=== PATIENT | male | born 1975 | race Caucasian/White ===

== ENCOUNTER 2022-06-23 13:58 | Inpatient (IN) | payer MEDICAID, SELFPAY ==
[2022-06-23] VITALS (32 sets, daily range): BP systolic 110–144; BP diastolic 66–90; PULSE 72–93; RESP 16–18; TEMP 36.6–37.3; O2SAT 93–97; BMI 31.0
--- NOTE | 2022-06-23 14:10 | ED.GENADULT ---
HPI - General Adult General Time Seen by Provider: 14:10 Date Seen: 06/23/22 Chief complaint: Lower Extremity Swelling Stated complaint: Right leg swelling Time Seen by Provider: 06/23/22 14:10 Source: patient and RN notes reviewed Mode of arrival: ambulatory Limitations: no limitations History of Present Illness HPI narrative: Jeyson is a very nice 47-year-old male previously healthy who comes to the emergency room with 1 week of increased swelling of his right calf now climbing into his right leg. Patient cannot recall any specific injury, extended car rides or plane trips or history of DVT. Notes that the swelling started in his calf and now it is very firm and painful when he walks. He notes that the discomfort seems to be climbing into his thigh mostly on the inner aspect. He denies shortness of breath. He does agree that his heart is racing but it had been previously any thinks that this is likely related to the stress of being in the ER. Patient cannot recall any trauma. 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 Patient has not had a history of DVT nor have immediate family members. Related Data Home Medications Medication Instructions Recorded Confirmed No Known Home Medications 06/23/22 06/23/22 Allergies Allergy/AdvReac Type Severity Reaction Status Date / Time No Known Drug Allergies Allergy Verified 06/23/22 16:26 Review of Systems Status of ROS: Reports: 10 or more systems reviewed and unremarkable except as noted in History and below Const: Denies: fever or chills ENMT: Denies: throat pain, neck pain or difficulty swallowing Cardio: Reports: edema and swelling of feet/ankles; Denies: chest pain, palpitations, lightheadedness or shortness of breath with exertion Resp: Denies: shortness of breath or cough GI: Denies: abdominal pain, nausea, vomiting or difficulty swallowing Musculo: Reports: extremity pain and extremity swelling; Denies: back pain or neck pain Integ/Breast: Denies: redness Neuro: Denies: headache, numbness in extremities or weakness in extremities PFSH PFSH Social History Smoking Status: Never smoker Do you use any of these nicotine containing products: None How often do you have a drink containing alcohol: monthly or less How many standard drinks containing alcohol do you have on a typical day: 1 or 2 How often do you have six or more drinks on one occasion: Never AUDIT-C Alcohol total score: 1 Non-prescribed substance use: denies use Exam Narrative: Exam Narrative: Alert and oriented. No acute distress. No respiratory distress. Heart with regular rate and rhythm. Lungs are clear bilaterally. Abdomen soft. Lower extremity show discoloration/ruddiness of the right lower extremity. Capillary refill on the leg is slightly delayed compared to left. Pedal pulses are intact bilaterally and are symmetrical. Feet are similar in temperature. Sensation is fully intact. Patient has tenderness of the right calf. And of the medial thigh. Motor is fully intact. Const: Vital Signs, click to edit/add: Vital Signs - 24 hr 06/23/22 14:05 06/23/22 14:29 06/23/22 14:30 Temperature 97.8 F Pulse Rate 77 81 Pulse Rate [Pulse Oximeter] 78 Respiratory Rate 18 Blood Pressure Blood Pressure [Ri ght Upper Arm] 144/82 H Pulse Oximetry 97 96 96 Oxygen Delivery Me thod Room Air Room Air 06/23/22 14:31 06/23/22 14:45 06/23/22 15:00 Temperature Pulse Rate 75 84 87 Pulse Rate [Pulse Oximeter] Respiratory Rate Blood Pressure 142/84 H Blood Pressure [Ri ght Upper Arm] Pulse Oximetry 95 94 95 Oxygen Delivery Me thod 06/23/22 15:02 06/23/22 15:17 06/23/22 15:36 Temperature Pulse Rate 86 76 Pulse Rate [Pulse Oximeter] Respiratory Rate Blood Pressure 139/89 110/67 Blood Pressure [Ri ght Upper Arm] Pulse Oximetry 95 95 94 Oxygen Delivery Me thod 06/23/22 15:18 06/23/22 15:30 06/23/22 15:45 Temperature Pulse Rate 74 78 77 Pulse Rate [Pulse Oximeter] Respiratory Rate Blood Pressure Blood Pressure [Ri ght Upper Arm] Pulse Oximetry 95 95 95 Oxygen Delivery Me thod 06/23/22 15:47 06/23/22 16:02 06/23/22 16:17 Temperature Pulse Rate 75 74 78 Pulse Rate [Pulse Oximeter] Respiratory Rate Blood Pressure 128/69 132/74 125/77 Blood Pressure [Ri ght Upper Arm] Pulse Oximetry 96 95 94 Oxygen Delivery Me thod Documenting provider has reviewed patient's vital signs: yes Course Course Hospital Course: Differential diagnosis includes but is not limited to infection/cellulitis, DVT, arterial insufficiency, compartment syndrome. No known injury to suspect compartment syndrome. Patient has no history of DVT nor does he present with any risk factors. He denies recent surgery, recent extended travel, tobacco use. Patient has equal and symmetrical pedal pulses and thus I do not think this is in the arterial issue. Will obtain CBC, basic panel, and INR. Doppler for right lower extremity is also ordered. Reevaluation(s) Reevaluation #1: Patient has continued to be hemodynamically stable with no hypoxia, tachycardia, chest pain or hypotension. Consultations Consultation #1: Initial consult with vascular surgeon Dr. Maciel from [facility]. At this time advises talking with Interventional Radiology for potential thrombectomy. Advises heparin over lysis as patient is hemodynamically stable even in the setting of a freely moving clot in the proximal superficial femoral. Consultation #2: Had the pleasure of speaking with Dr. Bundy, interventional radiologist from [facility]. At this time images were sent to [place] and he was able to view them. Suggest a CT venogram of the abdomen and pelvis to ensure that there are no further clots in the iliac veins or inferior vena cava. If there were he would suggest consult him potential transfer for thrombectomy. If not, suggest continuing on heparin with overnight hospitalization and then discharge on Eliquis or Xarelto. Vital Signs Vital signs: Initial Vital Signs Temperature 97.8 F 06/23/22 14:05 Temperature Source Temporal Artery Scan 06/23/22 14:05 Pulse Rate 78 06/23/22 14:05 Respiratory Rate 18 06/23/22 14:05 Blood Pressure 144/82 H 06/23/22 14:05 Blood Pressure Mean 102 06/23/22 14:05 Blood Pressure Position Sitting 06/23/22 14:05 Pulse Oximetry 97 06/23/22 14:05 Oxygen Delivery Method 06/23/22 14:05 Vital Signs Temperature 97.8 F 06/23/22 14:05 Pulse Rate 78 06/23/22 14:05 Respiratory Rate 18 06/23/22 14:05 Blood Pressure 144/82 H 06/23/22 14:05 Pulse Oximetry 97 06/23/22 14:05 Oxygen Delivery Method 06/23/22 14:05 Temperature 97.8 F 06/23/22 14:05 Pulse Rate 78 06/23/22 16:17 Respiratory Rate 18 06/23/22 14:05 Blood Pressure 125/77 06/23/22 16:17 Pulse Oximetry 94 06/23/22 16:17 Oxygen Delivery Method 06/23/22 14:29 Medical Decision Making MDM Narrative Medical decision making narrative: 1. Right lower extremity DVT-this is extensive and concerning because proximal area of clot was approximately 3 cm and mobile. arcade game technician did show this to me on the scan. Obviously concerning to me given potential large PE or even saddle embolism. As previously noted discussion with both vascular surgeon and Interventional Radiology with a direction and suggestions of IV heparin, observation and eventual discharge tomorrow on a novel anticoagulant secondary to appearance of clot as well as appearance of right lower extremity which showed mottling and delayed capillary refill. Patient given bolus of heparin 7800 units followed by hourly infusion of 1500 units. Of note, patient's leg color is much improved from initial mottling to normal color at this time. This DVT is unprovoked with no previous his recent history of surgeries, trauma, family history, periods of immobility. 2. PE-these are small and are not causing any significant right heart strain. No hypoxia is noted. 2. Disposition- admit to the floor under the care of hospitalist Dr. Marks. Medical Records Medical records reviewed: Yes I reviewed the patient's medical records Lab Data Lab results reviewed: Yes I reviewed the patient's lab results Labs: Lab Results 06/23/22 06/23/22 06/23/22 Range/Units 14:30 14:30 14:30 WBC 8.37 (4.50-11.00) K/uL RBC 4.94 (4.30-5.90) m/uL Hgb 13.6 (13.5-17.5) gm/dL Hct 39.7 (37.0-53.0) % MCV 80 (80-100) fL MCH 28 (26-34) pg MCHC 34 (32-36) gm/dL RDW Coeff of Fatou 12.0 (11.5-15.5) % Plt Count 217 (140-440) K/uL Neut % (Auto) 55.9 (42.0-72.0) % Lymph % (Auto) 28.0 (20-44) % Valley % (Auto) 11.4 H (0.0-11.0) % Eos % (Auto) 4.4 (0.0-7.0) % Baso % (Auto) 0.2 (0.0-3.0) % Neut # (Auto) 4.68 (1.7-7.0) K/uL Lymph # (Auto) 2.34 (0.90-2.90) K/uL Valley # (Auto) 1.00 H (0.00-0.90) K/UL Eos # (Auto) 0.37 (0.00-0.50) K/uL Baso # (Auto) 0.02 (0.00-0.30) K/uL INR 1.01 (0.91-1.10) Sodium 136 (135-149) mmol/L Potassium 4.0 (3.6-5.1) mmol/L Chloride 102 (96-114) mmol/L Carbon Dioxide 28 (20-32) mmol/L BUN 23 (5-24) mg/dL Creatinine 1.0 (0.5-1.5) mg/dL Estimated Creat Clear 92.26 Estimated GFR 92 ml/min Glucose 106 (60-115) mg/dL Calcium 8.6 (8.4-10.6) mg/dL Total Bilirubin 0.4 (0.1-1.5) mg/dL AST 23 (12-35) U/L ALT 22 (4-50) U/L Alkaline Phosphatase 58 (40-150) U/L Total Protein 7.6 (6.0-8.3) g/dL Albumin 4.1 (3.3-5.0) g/dL SARS-CoV-2 (PCR) (Negative) 06/23/22 Range/Units 15:35 WBC (4.50-11.00) K/uL RBC (4.30-5.90) m/uL Hgb (13.5-17.5) gm/dL Hct (37.0-53.0) % MCV (80-100) fL MCH (26-34) pg MCHC (32-36) gm/dL RDW Coeff of Fatou (11.5-15.5) % Plt Count (140-440) K/uL Neut % (Auto) (42.0-72.0) % Lymph % (Auto) (20-44) % Valley % (Auto) (0.0-11.0) % Eos % (Auto) (0.0-7.0) % Baso % (Auto) (0.0-3.0) % Neut # (Auto) (1.7-7.0) K/uL Lymph # (Auto) (0.90-2.90) K/uL Valley # (Auto) (0.00-0.90) K/UL Eos # (Auto) (0.00-0.50) K/uL Baso # (Auto) (0.00-0.30) K/uL INR (0.91-1.10) Sodium (135-149) mmol/L Potassium (3.6-5.1) mmol/L Chloride (96-114) mmol/L Carbon Dioxide (20-32) mmol/L BUN (5-24) mg/dL Creatinine (0.5-1.5) mg/dL Estimated Creat Clear Estimated GFR ml/min Glucose (60-115) mg/dL Calcium (8.4-10.6) mg/dL Total Bilirubin (0.1-1.5) mg/dL AST (12-35) U/L ALT (4-50) U/L Alkaline Phosphatase (40-150) U/L Total Protein (6.0-8.3) g/dL Albumin (3.3-5.0) g/dL SARS-CoV-2 (PCR) Negative SARS-CoV-2 (Negative) Imaging Data Venous US: Attestation: I have reviewed the pertinent imaging results. Radiologist's impression: Sonographic imaging of the right lower extremity demonstrates normal compressibility and color Doppler venous blood flow within the common femoral vein, Thrombus is seen from right proximal superficial femoral vein to the distal femoral vein. Thrombus in the popliteal, peroneal veins. Thrombus appears mobile per tech from proximal to distal right superficial femoral vein IMPRESSION: Right DVT from the proximal superficial vein to the calf veins. Thrombus appears mobile? per technologist within the superficial femoral vein. CT Chest/Ab/Pelvis: Attestation: I have reviewed the pertinent imaging results. Radiologist's impression: In the chest, there are small bilateral pulmonary emboli within the subsegmental lower lobe pulmonary arterial branches. The RV/LV ratio is less than 1. No pulmonary infarct or pleural effusion. No enlarged lymph nodes. No fracture. In the abdomen, there are a few scattered subcentimeter retroperitoneal lymph nodes. Liver, spleen, pancreas, adrenal glands, kidneys and gallbladder normal. In the pelvis, there is no soft tissue mass. Bladder normal. No adenopathy. No fracture. No bowel obstruction. No abscess or free air. Impression: Small bilateral pulmonary emboli. Normal CT abdomen and pelvis. ECG Data Attestation: I personally reviewed and interpreted this ECG as follows: Interpretation: EKG by my read shows sinus rhythm at a rate of 73. I do not note any right heart strain. No acute ST or T-wave changes. Critical Care Time Critical Care Time Critical Care Time: Yes Attestation: The patient required my highest level preparedness to intervene emergently and I personally spent this critical care time directly and personally managing the patient. This critical care time included: Obtaining a history; Examining the patient; Pulse oximetry; Ordering and reviewing of studies; Arranging urgent treatment with development of a management plan; Evaluation of patients response to treatment; Frequent reassessment discussions with other providers. This critical care time was performed to assess and manage the high probability of imminent life-threatening deterioration that could result in multiorgan failure. It was exclusive of separate billable procedures and treating other patients and teaching time. Total Critical Care Time in Minutes: 80 Discharge Plan Discharge Prescriptions: No Action No Known Home Medications
--- NOTE | 2022-06-23 14:16 | CRLHL7_ITS ---
For Patients: As a result of the Century Cures Act, medical imaging exams and procedure reports are released immediately into your electronic medical record. You may view this report before your referring provider. If you have questions, please contact your health care provider. CLINICAL HISTORY: Right calf pain TECHNIQUE: A compression venous ultrasound exam was performed of the right lower extremity using alanis-scale imaging, color Doppler and spectral Doppler analysis. FINDINGS: Sonographic imaging of the right lower extremity demonstrates normal compressibility and color Doppler venous blood flow within the common femoral vein, Thrombus is seen from right proximal superficial femoral vein to the distal femoral vein. Thrombus in the popliteal, peroneal veins. Thrombus appears mobile per tech from proximal to distal right superficial femoral vein IMPRESSION: Right DVT from the proximal superficial vein to the calf veins. Thrombus appears mobile per technologist within the superficial femoral vein. Results were related from the technologist to Dr. Dietrich at the time of examination. 06/23/2022 4 p.m. Dictated by Nancy Gomez MD @ 06/23/2022 4:00:35 PM (Electronically Signed)
[2022-06-23 14:34] LABS: Basophils Absolute Auto 0.02 K/uL (0.00-0.30); Basophils Percent Auto 0.2 % (0.0-3.0); Eosinophils Absolute Auto 0.37 K/uL (0.00-0.50); Eosinophils Percent Auto 4.4 % (0.0-7.0); Hematocrit 39.7 % (37.0-53.0); Hemoglobin* 13.6 gm/dL (13.5-17.5); Immature Granulocytes Abs Auto 0.01 K/uL (0.00-0.30); Immature Granulocytes Pct Auto 0.1 %; Lymphocytes Absolute Auto 2.34 K/uL (0.90-2.90); Mean Corpuscular HGB Conc 34 gm/dL (32-36); Mean Corpuscular Hemoglobin 28 pg (26-34); Mean Corpuscular Volume 80 fL (80-100); Monocytes Percent Auto 11.4 % (0.0-11.0); Neutrophils Absolute Auto 4.68 K/uL (1.7-7.0); Neutrophils Percent Auto 55.9 % (42.0-72.0); Platelet Count* 217 K/uL (140-440); Red Blood Count 4.94 m/uL (4.30-5.90); White Blood Count* 8.37 K/uL (4.50-11.00)
[2022-06-23 14:51] LABS: Albumin* 4.1 g/dL (3.3-5.0); Chloride* 102 mmol/L (96-114); Slide Review Reflex No
[2022-06-23 14:52] LABS: Sodium* 136 mmol/L (135-149)
[2022-06-23 14:54] LABS: Bilirubin Total* 0.4 mg/dL (0.1-1.5); Carbon Dioxide* 28 mmol/L (20-32); Est. Creatinine Clearance* 92.26; Estimated Glomerular Filt Rate 92 ml/min; Total Protein* 7.6 g/dL (6.0-8.3)
[2022-06-23 14:55] LABS: Alanine Aminotransferase* 22 U/L (4-50); Alkaline Phosphatase* 58 U/L (40-150); Aspartate Amino Transferase* 23 U/L (12-35); Blood Urea Nitrogen* 23 mg/dL (5-24); Calcium* 8.6 mg/dL (8.4-10.6); Glucose* 106 mg/dL (60-115)
[2022-06-23 15:01] LABS: INR 1.01 (0.91-1.10); Prothrombin Time 13.9 Seconds
--- NOTE | 2022-06-23 15:09 | ED.NURSE ---
at bedside per U/S tech request.
--- NOTE | 2022-06-23 15:14 | ED.NURSE ---
ANW Vascular surgeon paged.
--- NOTE | 2022-06-23 15:23 | ED.NURSE ---
Dr. Dietrich speaking to PRIYANKA CHESTER.
[2022-06-23] MEDS: HEPARIN 5,000 UNIT/0.5 ML INJ 7800 UNIT IVP (15:53)
[2022-06-23] MEDS: HEPARIN 25,000 UNIT/500 ML BAG 30 UNIT IV (15:54)
--- NOTE | 2022-06-23 15:58 | CRLHL7_ITS ---
For Patients: As a result of the Century Cures Act, medical imaging exams and procedure reports are released immediately into your electronic medical record. You may view this report before your referring provider. If you have questions, please contact your health care provider. Indication: EXTENSIVE RIGHT LOWER EXTREMITY CLOT Technique: CT Chest/Abd/Pelvis W/ 95CC [id number] PE PROTOCOL Please note that all CT scans at this facility use dose modulation, iterative reconstruction, and/or weight-based dosing when appropriate to reduce radiation dose to as low as reasonably achievable. Comparison: US 06/23/22 Findings: In the chest, there are small bilateral pulmonary emboli within the subsegmental lower lobe pulmonary arterial branches. The RV/LV ratio is less than 1. No pulmonary infarct or pleural effusion. No enlarged lymph nodes. No fracture. In the abdomen, there are a few scattered subcentimeter retroperitoneal lymph nodes. Liver, spleen, pancreas, adrenal glands, kidneys and gallbladder normal. In the pelvis, there is no soft tissue mass. Bladder normal. No adenopathy. No fracture. No bowel obstruction. No abscess or free air. Impression: Small bilateral pulmonary emboli. Normal CT abdomen and pelvis. Called to Dr. Long 5:20 p.m. 06/23/2022. Please note that all CT scans at this facility use dose modulation, iterative reconstruction, and/or weight-based dosing when appropriate to reduce radiation dose to as low as reasonably achievable. Dictated by Devyn Renee MD @ 06/23/2022 5:18:30 PM (Electronically Signed)
[2022-06-23 16:11] LABS: SARS PCR* Negative SARS-CoV-2 (Negative)
--- NOTE | 2022-06-23 16:45 | ED.NURSE ---
Pt continuously monitored while at imaging. Pt tolerated well.
--- NOTE | 2022-06-23 18:03 | ED.NURSE ---
Report given to JEZ Byrnes. Pt will go to Rm [id number].
--- NOTE | 2022-06-23 18:29 | ED.NURSE ---
Pt tolerated transfer to /S well via cot. Belongings and at bedside. Heparin gtt continues to infuse at 1500 units/hr. 2nd IV SL at this time.
--- NOTE | 2022-06-23 19:17 | PM.IMHP1 ---
Hospitalist- H&P: HPI History of Present Illness Date Seen: 06/23/22 Chief complaint: Right leg swelling Narrative: Jeyson Judd is a 47 year old male who presented to the emergency room today for right extremity edema. He has noted discomfort in the area intermittently over the past 5-7 days; swelling has been noted for the past 2-3 days. No recent travel, no recent illness. No history of blood clots in self or family members. Generally healthy, no PCP. No daily medications or supplements/vitamins. Has never had a colonoscopy. ER course and findings: - thrombus in right proximal superficial femoral vein to the distal femoral vein with thrombus in popliteal and peroneal veins; does not extend into IVC - small bilateral pulmonary emboli - Dr. Dietrich in the emergency room reviewed case with IR and vascular surgery, who recommend a heparin drip overnight and transitioning to oral anticoagulation in the morning - heparin initiated in the emergency room When I see patient, he has no concerns for hospitalist team. Review of Systems Status of ROS: Reports: 10 or more systems reviewed and unremarkable except as noted in History and below Narrative: Specifically denies chest pain or dyspnea PFSH PFS Surgical History (Updated 06/23/22 @ 19:18 by Miranda Marks MD) No history of previous surgery Social History (Updated 06/23/22 @ 19:19 by Miranda Marks MD) Narrative: Lives with Radha (medical decision maker if needed), 3 children. Works in [employer] in the winter. Nonsmoker, rare ETOH use. Full Code. Smoking Status: Never smoker Do you use any of these nicotine containing products: None How often do you have a drink containing alcohol: monthly or less How many standard drinks containing alcohol do you have on a typical day: 1 or 2 How often do you have six or more drinks on one occasion: Never AUDIT-C Alcohol total score: 1 Non-prescribed substance use: denies use Meds Home Medications and Allergies Home Medications Medication Instructions Recorded Confirmed Type No Known Home Medications 06/23/22 06/23/22 History Allergies Allergy/AdvReac Type Severity Reaction Status Date / Time No Known Drug Allergies Allergy Verified 06/23/22 16:26 Exam Narrative: Exam Narrative: GEN: Alert and oriented, sitting comfortably in bed and nontoxic in appearance HEENT: Normal external ears, EOMIs bilaterally, no scleral icterus CV: RRR, No concerning murmurs, rubs, or gallops R: LCTA bilaterally without concerning wheezing, rales, or rhonchi Ext: Nonpitting edema of right lower extremity, normal and symmetric peripheral pulses, normal sensation and capillary refill Skin: No concerning skin lesions or rashes on exposed skin Neuro: No focal deficits Psych: Appropriate Const: Vital Signs, click to edit/add: Vital Signs - 24 hr 06/23/22 14:05 06/23/22 14:29 06/23/22 14:30 Temperature 97.8 F Pulse Rate 77 81 Pulse Rate [Pulse Oximeter] 78 Pulse Rate [Right Radial] Respiratory Rate 18 Blood Pressure Blood Pressure [Ri ght Arm] Blood Pressure [Ri ght Upper Arm] 144/82 H Pulse Oximetry 97 96 96 Oxygen Delivery Me thod Room Air Room Air 06/23/22 14:31 06/23/22 14:45 06/23/22 15:00 Temperature Pulse Rate 75 84 87 Pulse Rate [Pulse Oximeter] Pulse Rate [Right Radial] Respiratory Rate Blood Pressure 142/84 H Blood Pressure [Ri ght Arm] Blood Pressure [Ri ght Upper Arm] Pulse Oximetry 95 94 95 Oxygen Delivery Me thod 06/23/22 15:02 06/23/22 15:17 06/23/22 15:36 Temperature Pulse Rate 86 76 Pulse Rate [Pulse Oximeter] Pulse Rate [Right Radial] Respiratory Rate Blood Pressure 139/89 110/67 Blood Pressure [Ri ght Arm] Blood Pressure [Ri ght Upper Arm] Pulse Oximetry 95 95 94 Oxygen Delivery Me thod 06/23/22 15:18 06/23/22 15:30 06/23/22 15:45 Temperature Pulse Rate 74 78 77 Pulse Rate [Pulse Oximeter] Pulse Rate [Right Radial] Respiratory Rate Blood Pressure Blood Pressure [Ri ght Arm] Blood Pressure [Ri ght Upper Arm] Pulse Oximetry 95 95 95 Oxygen Delivery Me thod 06/23/22 15:47 06/23/22 16:02 06/23/22 16:17 Temperature Pulse Rate 75 74 78 Pulse Rate [Pulse Oximeter] Pulse Rate [Right Radial] Respiratory Rate Blood Pressure 128/69 132/74 125/77 Blood Pressure [Ri ght Arm] Blood Pressure [Ri ght Upper Arm] Pulse Oximetry 96 95 94 Oxygen Delivery Me thod 06/23/22 16:18 06/23/22 16:42 06/23/22 16:45 Temperature Pulse Rate 79 77 77 Pulse Rate [Pulse Oximeter] Pulse Rate [Right Radial] Respiratory Rate Blood Pressure Blood Pressure [Ri ght Arm] Blood Pressure [Ri ght Upper Arm] Pulse Oximetry 94 97 96 Oxygen Delivery Me thod 06/23/22 16:47 06/23/22 17:00 06/23/22 17:02 Temperature Pulse Rate 78 79 76 Pulse Rate [Pulse Oximeter] Pulse Rate [Right Radial] Respiratory Rate Blood Pressure 143/79 H 124/76 Blood Pressure [Ri ght Arm] Blood Pressure [Ri ght Upper Arm] Pulse Oximetry 96 94 96 Oxygen Delivery Me thod 06/23/22 17:15 06/23/22 17:17 06/23/22 17:30 Temperature Pulse Rate 78 72 83 Pulse Rate [Pulse Oximeter] Pulse Rate [Right Radial] Respiratory Rate Blood Pressure 124/76 Blood Pressure [Ri ght Arm] Blood Pressure [Ri ght Upper Arm] Pulse Oximetry 94 95 95 Oxygen Delivery Me thod 06/23/22 17:31 06/23/22 17:45 06/23/22 17:48 Temperature Pulse Rate 81 78 83 Pulse Rate [Pulse Oximeter] Pulse Rate [Right Radial] Respiratory Rate Blood Pressure 144/81 H 137/84 Blood Pressure [Ri ght Arm] Blood Pressure [Ri ght Upper Arm] Pulse Oximetry 95 95 95 Oxygen Delivery Me thod 06/23/22 18:00 06/23/22 18:02 06/23/22 18:28 Temperature 98.7 F Pulse Rate 79 81 Pulse Rate [Pulse Oximeter] Pulse Rate [Right Radial] 81 Respiratory Rate 18 Blood Pressure 136/84 Blood Pressure [Ri ght Arm] 138/90 H Blood Pressure [Ri ght Upper Arm] Pulse Oximetry 95 96 95 Oxygen Delivery Me thod Room Air Hospitalist - H&P: Result Labs Labs: Short CBC 06/23/22 Range/Units 14:30 WBC 8.37 (4.50-11.00) K/uL Hgb 13.6 (13.5-17.5) gm/dL Hct 39.7 (37.0-53.0) % Plt Count 217 (140-440) K/uL BMP 06/23/22 14:30 Sodium 136 Potassium 4.0 Chloride 102 Carbon Dioxide 28 BUN 23 Creatinine 1.0 Glucose 106 Calcium 8.6 Liver Function 06/23/22 Range/Units 14:30 Total Bilirubin 0.4 (0.1-1.5) mg/dL AST 23 (12-35) U/L ALT 22 (4-50) U/L Alkaline Phosphatase 58 (40-150) U/L Albumin 4.1 (3.3-5.0) g/dL Comparison: US 06/23/22 Findings: In the chest, there are small bilateral pulmonary emboli within the subsegmental lower lobe pulmonary arterial branches. The RV/LV ratio is less than 1. No pulmonary infarct or pleural effusion. No enlarged lymph nodes. No fracture. In the abdomen, there are a few scattered subcentimeter retroperitoneal lymph nodes. Liver, spleen, pancreas, adrenal glands, kidneys and gallbladder normal. In the pelvis, there is no soft tissue mass. Bladder normal. No adenopathy. No fracture. No bowel obstruction. No abscess or free air. Impression: Small bilateral pulmonary emboli. Normal CT abdomen and pelvis. FINDINGS: Sonographic imaging of the right lower extremity demonstrates normal compressibility and color Doppler venous blood flow within the common femoral vein, Thrombus is seen from right proximal superficial femoral vein to the distal femoral vein. Thrombus in the popliteal, peroneal veins. Thrombus appears mobile per tech from proximal to distal right superficial femoral vein IMPRESSION: Right DVT from the proximal superficial vein to the calf veins. Thrombus appears mobile? per technologist within the superficial femoral vein. Results were related from the technologist to Dr. Dietrich at the time of examination. 06/23/2022 4 p.m. Assessment and Plan Assessment and plan (1) DVT (deep venous thrombosis): Problem comment: - heparin drip overnight, transition to oral anticoagulant in the morning Status: Acute (2) Pulmonary embolism: Problem comment: - Asymptomatic, not hypoxic. Will monitor on telemetry overnight - reviewed concerning symptoms Status: Acute Plan - per above - updated at bedside, questions answered
[2022-06-23] MEDS: SODIUM CHLORIDE 0.9 % (FLUSH) 10 ML SYRINGE 5 ML IVF (21:28)
[2022-06-23 21:58] LABS: Partial Thromboplastin Time* 81 Seconds (23-33)
[2022-06-23] MEDS: HEPARIN 25,000 UNIT/500 ML BAG 26 UNIT IV (22:30)
[2022-06-24 03:00] VITALS: BP 120/77; PULSE 68; RESP 16; TEMP 37.2; O2SAT 94
[2022-06-24] MEDS: ACETAMINOPHEN 325 MG TABLET 975 MG PO (04:56)
[2022-06-24 05:11] LABS: Basophils Absolute Auto 0.04 K/uL (0.00-0.30); Basophils Percent Auto 0.5 % (0.0-3.0); Eosinophils Absolute Auto 0.51 K/uL (0.00-0.50); Eosinophils Percent Auto 5.7 % (0.0-7.0); Hemoglobin* 13.1 gm/dL (13.5-17.5); Immature Granulocytes Abs Auto 0.02 K/uL (0.00-0.30); Immature Granulocytes Pct Auto 0.2 %; Lymphocytes Absolute Auto 2.62 K/uL (0.90-2.90); Lymphocytes Percent Auto 29.5 % (20-44); Mean Corpuscular HGB Conc 35 gm/dL (32-36); Mean Corpuscular Hemoglobin 28 pg (26-34); Mean Corpuscular Volume 81 fL (80-100); Monocytes Percent Auto 9.6 % (0.0-11.0); Neutrophils Absolute Auto 4.84 K/uL (1.7-7.0); Neutrophils Percent Auto 54.5 % (42.0-72.0); Platelet Count* 205 K/uL (140-440); RDW Coefficient of Variation % 12.2 % (11.5-15.5); White Blood Count* 8.88 K/uL (4.50-11.00)
[2022-06-24 05:15] LABS: Slide Review Reflex No
[2022-06-24 05:28] LABS: Partial Thromboplastin Time* 97 Seconds (23-33)
[2022-06-24 05:37] LABS: Chloride* 105 mmol/L (96-114)
[2022-06-24 05:38] LABS: Potassium* 3.8 mmol/L (3.6-5.1); Sodium* 137 mmol/L (135-149)
[2022-06-24 05:40] LABS: Creatinine* 0.8 mg/dL (0.5-1.5); Est. Creatinine Clearance* 115.33; Estimated Glomerular Filt Rate 108 ml/min
[2022-06-24 05:41] LABS: Blood Urea Nitrogen* 16 mg/dL (5-24); Calcium* 8.3 mg/dL (8.4-10.6); Carbon Dioxide* 30 mmol/L (20-32); Glucose* 103 mg/dL (60-115)
[2022-06-24 07:00] VITALS: BP 138/90; PULSE 72; RESP 16; TEMP 37.2; O2SAT 95
--- NOTE | 2022-06-24 07:18 | PC.NURSE ---
END OF SHIFT NOTE: PT A&Ox4, PLEASANT AND COOPERATIVE. DENIES CP, SOB, N/V. AMBULATES INDEPENDENTLY WITHIN ROOM. VSS ON RA; AFEBRILE. CALL LIGHT WITHIN PT?S REACH. IV IN LEFT AC WITH HEPARIN DRIP RUNNING; RIGHT AC IS SL. RIGHT CALF SWOLLEN, WARM AND TENDER TO TOUCH. PT REPORTED RIGHT CALF PAIN 4/10 WITH RELIEF FROM ELEVATION AND PAIN MED (SEE eMAR). PT STATED PT TAKES ?TERE? A TESTOSTERONE SUPPLEMENT; NOTIFIED AND PT TOLD TO STOP SUPPLEMENT.
[2022-06-24] MEDS: SODIUM CHLORIDE 0.9 % (FLUSH) 10 ML SYRINGE 5 ML IVF (08:04)
[2022-06-24] MEDS: APIXABAN 5 MG TABLET 10 MG PO (10:03)
[2022-06-24 10:47] VITALS: BP 136/84; PULSE 89; RESP 16; TEMP 37.2
--- NOTE | 2022-06-24 11:33 | PM.DS1 ---
DS: Providers Provider Date Seen: 06/24/22 Date of admission: 06/23/22 19:01 Primary care physician: Not a Local Provider Admitting Clinician: Miranda Marks MD Attending Physician on discharge: Miranda Marks MD Date of Discharge: 06/24/22 DS: Diagnosis Discharge Diagnosis (1) DVT (deep venous thrombosis): Status: Acute Problem details: - extensive with concern for mobile thrombus (2) Pulmonary embolism: Status: Acute Problem details: - Asymptomatic, not hypoxic during stay DS: Summary Hospital Course Hospital Course: 47-year-old male, admitted to the hospital on 06/23 for right leg edema and discomfort, diagnosed with an unprovoked RLE DVT and bilateral PEs. No history of blood clots in self or family. Given concern for a mobile thrombus proximally, he was admitted for a heparin gtt overnight, transitioned to Eliquis on hospital day #1. He remained stable on RA without any chest pain or dyspnea, was medically stable for discharge on hospital day #1. He has followup scheduled later this week with Dr. Kramer of Vascular Medicine and Dr. Terry as PCP. Status at Discharge Functional status at discharge: independent ambulation Overall status at discharge: patient is progressing back to baseline Time Spent with Patient Time attestation: Total time spent providing and/or coordinating discharge services: Time spent: Greater than 30 minutes Specific discharge activities: Medication management and education, discharge planning and appt coordination Exam Narrative: Exam Narrative: GEN: Alert and oriented, sitting comfortably in bed and speaking in full sentences. Nontoxic in appearance HEENT: EOMIs bilaterally, no scleral icterus CV: RRR, No concerning murmurs, rubs, or gallops R: LCTA bilaterally without concerning wheezing, air movement is adequate Ext: Nonpitting edema of right lower extremity, foot is warm and well perfused Skin: No concerning skin lesions or rashes on exposed skin Neuro: No focal deficits Psych: Appropriate Const: Vital Signs, click to edit/add: Vital Signs - 24 hr 06/23/22 14:05 06/23/22 14:29 06/23/22 14:30 Temperature 97.8 F Pulse Rate 77 81 Pulse Rate [Pulse Oximeter] 78 Pulse Rate [Right Radial] Respiratory Rate 18 Blood Pressure Blood Pressure [Ri ght Arm] Blood Pressure [Ri ght Upper Arm] 144/82 H Pulse Oximetry 97 96 96 Oxygen Delivery Me thod Room Air Room Air 06/23/22 14:31 06/23/22 14:45 06/23/22 15:00 Temperature Pulse Rate 75 84 87 Pulse Rate [Pulse Oximeter] Pulse Rate [Right Radial] Respiratory Rate Blood Pressure 142/84 H Blood Pressure [Ri ght Arm] Blood Pressure [Ri ght Upper Arm] Pulse Oximetry 95 94 95 Oxygen Delivery Me thod 06/23/22 15:02 06/23/22 15:17 06/23/22 15:36 Temperature Pulse Rate 86 76 Pulse Rate [Pulse Oximeter] Pulse Rate [Right Radial] Respiratory Rate Blood Pressure 139/89 110/67 Blood Pressure [Ri ght Arm] Blood Pressure [Ri ght Upper Arm] Pulse Oximetry 95 95 94 Oxygen Delivery Me thod 06/23/22 15:18 06/23/22 15:30 06/23/22 15:45 Temperature Pulse Rate 74 78 77 Pulse Rate [Pulse Oximeter] Pulse Rate [Right Radial] Respiratory Rate Blood Pressure Blood Pressure [Ri ght Arm] Blood Pressure [Ri ght Upper Arm] Pulse Oximetry 95 95 95 Oxygen Delivery Me thod 06/23/22 15:47 06/23/22 16:02 06/23/22 16:17 Temperature Pulse Rate 75 74 78 Pulse Rate [Pulse Oximeter] Pulse Rate [Right Radial] Respiratory Rate Blood Pressure 128/69 132/74 125/77 Blood Pressure [Ri ght Arm] Blood Pressure [Ri ght Upper Arm] Pulse Oximetry 96 95 94 Oxygen Delivery Me thod 06/23/22 16:18 06/23/22 16:42 06/23/22 16:45 Temperature Pulse Rate 79 77 77 Pulse Rate [Pulse Oximeter] Pulse Rate [Right Radial] Respiratory Rate Blood Pressure Blood Pressure [Ri ght Arm] Blood Pressure [Ri ght Upper Arm] Pulse Oximetry 94 97 96 Oxygen Delivery Me thod 06/23/22 16:47 06/23/22 17:00 06/23/22 17:02 Temperature Pulse Rate 78 79 76 Pulse Rate [Pulse Oximeter] Pulse Rate [Right Radial] Respiratory Rate Blood Pressure 143/79 H 124/76 Blood Pressure [Ri ght Arm] Blood Pressure [Ri ght Upper Arm] Pulse Oximetry 96 94 96 Oxygen Delivery Me thod 06/23/22 17:15 06/23/22 17:17 06/23/22 17:30 Temperature Pulse Rate 78 72 83 Pulse Rate [Pulse Oximeter] Pulse Rate [Right Radial] Respiratory Rate Blood Pressure 124/76 Blood Pressure [Ri ght Arm] Blood Pressure [Ri ght Upper Arm] Pulse Oximetry 94 95 95 Oxygen Delivery Me thod 06/23/22 17:31 06/23/22 17:45 06/23/22 17:48 Temperature Pulse Rate 81 78 83 Pulse Rate [Pulse Oximeter] Pulse Rate [Right Radial] Respiratory Rate Blood Pressure 144/81 H 137/84 Blood Pressure [Ri ght Arm] Blood Pressure [Ri ght Upper Arm] Pulse Oximetry 95 95 95 Oxygen Delivery Me thod 06/23/22 18:00 06/23/22 18:02 06/23/22 18:28 Temperature 98.7 F Pulse Rate 79 81 Pulse Rate [Pulse Oximeter] Pulse Rate [Right Radial] 81 Respiratory Rate 18 Blood Pressure 136/84 Blood Pressure [Ri ght Arm] 138/90 H Blood Pressure [Ri ght Upper Arm] Pulse Oximetry 95 96 95 Oxygen Delivery Me thod Room Air 06/23/22 21:00 06/23/22 21:00 06/23/22 21:00 Temperature 98.4 F Pulse Rate 89 Pulse Rate [Pulse Oximeter] 92 Pulse Rate [Right Radial] Respiratory Rate 18 18 Blood Pressure Blood Pressure [Ri ght Arm] 135/80 Blood Pressure [Ri ght Upper Arm] Pulse Oximetry 97 97 Oxygen Delivery Me thod Room Air Room Air 06/23/22 23:00 06/23/22 23:00 06/23/22 23:00 Temperature 99.2 F Pulse Rate Pulse Rate [Pulse Oximeter] 92 93 Pulse Rate [Right Radial] Respiratory Rate 18 18 16 Blood Pressure Blood Pressure [Ri ght Arm] 124/66 Blood Pressure [Ri ght Upper Arm] Pulse Oximetry 97 93 Oxygen Delivery Me thod Room Air Room Air 06/24/22 03:00 06/24/22 07:00 06/24/22 07:00 Temperature 98.9 F Pulse Rate Pulse Rate [Pulse Oximeter] 68 72 Pulse Rate [Right Radial] Respiratory Rate 16 16 16 Blood Pressure Blood Pressure [Ri ght Arm] 120/77 Blood Pressure [Ri ght Upper Arm] Pulse Oximetry 94 95 Oxygen Delivery Me thod Room Air Room Air 06/24/22 07:00 06/24/22 10:47 Temperature 98.9 F 98.9 F Pulse Rate 89 Pulse Rate [Pulse Oximeter] 72 Pulse Rate [Right Radial] Respiratory Rate 16 16 Blood Pressure 136/84 Blood Pressure [Ri ght Arm] 138/90 H Blood Pressure [Ri ght Upper Arm] Pulse Oximetry 95 Oxygen Delivery Me thod Room Air DS: Data Data Completed and Pending Completed studies during hospitalization: RLE ULTRASOUND FINDINGS: Sonographic imaging of the right lower extremity demonstrates normal compressibility and color Doppler venous blood flow within the common femoral vein, Thrombus is seen from right proximal superficial femoral vein to the distal femoral vein. Thrombus in the popliteal, peroneal veins. Thrombus appears mobile per tech from proximal to distal right superficial femoral vein IMPRESSION: Right DVT from the proximal superficial vein to the calf veins. Thrombus appears mobile? per technologist within the superficial femoral vein. Results were related from the technologist to Dr. Dietrich at the time of examination. 06/23/2022 4 p.m. Dictated by Nancy Gomez MD @ 06/23/2022 4:00:[address] ANGIO CHEST Indication: EXTENSIVE RIGHT LOWER EXTREMITY CLOT Technique: CT Chest/Abd/Pelvis W/ 95CC [id number] PE PROTOCOL Please note that all CT scans at this facility use dose modulation, iterative reconstruction, and/or weight-based dosing when appropriate to reduce radiation dose to as low as reasonably achievable. Comparison: US 06/23/22 Findings: In the chest, there are small bilateral pulmonary emboli within the subsegmental lower lobe pulmonary arterial branches. The RV/LV ratio is less than 1. No pulmonary infarct or pleural effusion. No enlarged lymph nodes. No fracture. In the abdomen, there are a few scattered subcentimeter retroperitoneal lymph nodes. Liver, spleen, pancreas, adrenal glands, kidneys and gallbladder normal. In the pelvis, there is no soft tissue mass. Bladder normal. No adenopathy. No fracture. No bowel obstruction. No abscess or free air. Impression: Small bilateral pulmonary emboli. Normal CT abdomen and pelvis. Called to Dr. Long? 5:20 p.m.? 06/23/2022. Please note that all CT scans at this facility use dose modulation, iterative reconstruction, and/or weight-based dosing when appropriate to reduce radiation dose to as low as reasonably achievable. Dictated by Devyn Renee MD @ 06/23/2022 5:18:30 PM Labs on day of discharge: Labs from last 24 hours 06/24/22 06/24/22 06/24/22 05:05 05:05 05:05 WBC 8.88 RBC 4.70 Hgb 13.1 L Hct 38.0 MCV 81 MCH 28 MCHC 35 RDW Coeff of Fatou 12.2 Plt Count 205 Neut % (Auto) 54.5 Lymph % (Auto) 29.5 Petroleum % (Auto) 9.6 Eos % (Auto) 5.7 Baso % (Auto) 0.5 Neut # (Auto) 4.84 Lymph # (Auto) 2.62 Petroleum # (Auto) 0.90 Eos # (Auto) 0.51 H Baso # (Auto) 0.04 INR APTT 97 H Sodium 137 Potassium 3.8 Chloride 105 Carbon Dioxide 30 BUN 16 Creatinine 0.8 Estimated Creat Clear 115.33 Estimated GFR 108 Glucose 103 Calcium 8.3 L Total Bilirubin AST ALT Alkaline Phosphatase Total Protein Albumin SARS-CoV-2 (PCR) 06/23/22 06/23/22 06/23/22 21:37 15:35 14:30 WBC RBC Hgb Hct MCV MCH MCHC RDW Coeff of Fatou Plt Count Neut % (Auto) Lymph % (Auto) Petroleum % (Auto) Eos % (Auto) Baso % (Auto) Neut # (Auto) Lymph # (Auto) Petroleum # (Auto) Eos # (Auto) Baso # (Auto) INR APTT 81 H Sodium 136 Potassium 4.0 Chloride 102 Carbon Dioxide 28 BUN 23 Creatinine 1.0 Estimated Creat Clear 92.26 Estimated GFR 92 Glucose 106 Calcium 8.6 Total Bilirubin 0.4 AST 23 ALT 22 Alkaline Phosphatase 58 Total Protein 7.6 Albumin 4.1 SARS-CoV-2 (PCR) Negative SARS-CoV-2 06/23/22 06/23/22 14:30 14:30 WBC 8.37 RBC 4.94 Hgb 13.6 Hct 39.7 MCV 80 MCH 28 MCHC 34 RDW Coeff of Fatou 12.0 Plt Count 217 Neut % (Auto) 55.9 Lymph % (Auto) 28.0 Petroleum % (Auto) 11.4 H Eos % (Auto) 4.4 Baso % (Auto) 0.2 Neut # (Auto) 4.68 Lymph # (Auto) 2.34 Petroleum # (Auto) 1.00 H Eos # (Auto) 0.37 Baso # (Auto) 0.02 INR 1.01 APTT Sodium Potassium Chloride Carbon Dioxide BUN Creatinine Estimated Creat Clear Estimated GFR Glucose Calcium Total Bilirubin AST ALT Alkaline Phosphatase Total Protein Albumin SARS-CoV-2 (PCR) Discharge Plan Discharge Disposition: Home, Self-Care Date of Admission: 06/23/22 19:01 Attending Provider on Discharge: Miranda Marks Primary Care Provider: Provider,Not a Local Condition: Improved Anticipated Discharge Date/Time: 06/24/22 12:00 Discharge Medications: New Eliquis 5 mg Tablet 10 mg PO BID Qty: 13 0RF Rx Instructions: complete one full week course of 10mg BID, then start the 5mg BID order Eliquis 5 mg tablet 5 mg PO BID Qty: 60 0RF Rx Instructions: start this dose on June 21 after completing the 10mg BID dose oxycodone 5 mg tablet 5 mg PO Q8H PRN (Reason: pain) Qty: 10 0RF Rx Instructions: prn severe pain Discharge Orders: Discharge Order (Routine); Ordered 06/24/22 Ordered By: Miranda Marks Patient Education: Oxycodone, Rapid Release (By mouth), Apixaban (By mouth) (Eliquis), Pulmonary Embolism (GEN), Deep Vein Thrombosis (DC), Deep Vein Thrombosis Prevention (DC) Additional Instructions: Blood thinner (Eliquis) sent to [facility] - you're on a higher dose for one week, then a lower dose (both doses are twice/day). Depending on your insurance coverage, you may want to download the Audioscribe viv to save medication cost. Wear Burke hose during the day until you see the Vascular surgeon in followup. Establish care with one of the providers at the [facility]. Activity Level: No strenuous activity Activity Detail: No work until Friday, 07/01 Discharge Diet: Regular Follow Up Appointments: Provider,Not a Local [Primary Care Provider] - 07/03/22 11:30 am (1. Appt scheduled with Dr. Donnie Kramer (vascular medicine) on June 27 at 1:00pm at [facility]. They are located on the 2nd floor in the [facility]. Needs to be seen in 7-10 days for hospital discharge f/u for B PEs and DVT with mobile thrombus (images have been pushed to ANW). Clinic # for Dr. Kramer is [phone]. 2. Hospital follow up scheduled with Dr. Terry at 11:30 on 07/03/22 at [place] [id number] ) Forms: Work/School Release, [employer] Info Instructions
[2022-06-24 11:45] VITALS: BP 136/84; PULSE 89; RESP 16; TEMP 37.2
--- NOTE | 2022-06-24 12:28 | PC.NURSE ---
Pt is alert and oriented, pleasant and cooperative. VS stable, declines need for any PRN pain alleviating medication, states he's fairly comfortable at rest but increased discomfort when ambulating/ADLs. TEDs applied to BLE. Heparin drip stopped at 11am per MD order for one hour overlap of admin Eliquis (admin 10mg at 10am). IVs removed prior to pt dc'ing home, intact without issue. , 'Radha' at bedside this AM. Discharge instructions reviewed with pt and spouse, questions answered. Pt ambulated at d/c, declined offer for WC ride. Pt d/c home w/ spouse at noon.
== END 2022-06-24 12:00 | disposition home or self-care (01) | DRG 299 ==
LOC: ED 18:01 → MEDSURG 18:07
PROVIDERS: Admitting Provider Family Medicine; Emergency Provider Family Medicine; Visit Provider Family Medicine
DX: I82.411 Acute embolism and thrombosis of right femoral vein (principal); I26.99 Other pulmonary embolism without acute cor pulmonale; I82.431 Acute embolism and thrombosis of right popliteal vein; I82.451 Acute embolism and thrombosis of right peroneal vein
CPT/HCPCS: 36415; 71260; 74177; 80048; 80053; 85025; 85610; 85730; 87635; 93971; 94761; 99284; 99291; 99292; A9270; J1644; Q9967

== ENCOUNTER 2022-07-10 16:43 | Outpatient (CLI) | payer MEDICAID, SELFPAY ==
--- NOTE | 2022-07-10 17:00 | CRLHL7_ITS ---
For Patients: As a result of the Century Cures Act, medical imaging exams and procedure reports are released immediately into your electronic medical record. You may view this report before your referring provider. If you have questions, please contact your health care provider. INDICATION: Follow up right lower extremity deep venous thrombosis. Treated with blood thinners. TECHNIQUE: Grayscale and color spectral Doppler waveform analysis of the deep veins of the right lower extremity. COMPARISON: June 23, 2022. FINDINGS: Persistent thrombus within the mid femoral vein, distal femoral vein, popliteal, as well as the proximal and mid posterior tibial and peroneal veins. When compared to the prior study there is no longer thrombus within the proximal femoral vein nor within the distal posterior tibial veins. For comparison the left saphenous femoral junction is imaged and it is patent and compressible. IMPRESSION: Partially resolving thrombus within the deep veins of the right lower extremity. Dictated by Mazin Nunez MD @ 07/11/2022 8:20:58 AM (Electronically Signed)
== END 2022-07-10 16:44 | disposition home or self-care (01) ==
LOC: US 16:44
PROVIDERS: Visit Provider Family Medicine
DX: I82.409 Acute embolism and thrombosis of unspecified deep veins of unspecified lower extremity (principal)
CPT/HCPCS: 93971

== ENCOUNTER 2022-10-25 09:19 | Outpatient (CLI) | payer MEDICAID, SELFPAY | END 2022-10-25 09:20 | disposition home or self-care (01) | PROVIDERS: Visit Provider Physician Assistant Medical | DX: Z00.00 Encounter for general adult medical examination without abnormal findings (principal); Z13.6 Encounter for screening for cardiovascular disorders; Z13.29 Encounter for screening for other suspected endocrine disorder | CPT/HCPCS: 80053; 80061; 84443 ==

== ENCOUNTER 2023-11-11 19:22 | Emergency (ER) | payer MEDICAID, SELFPAY ==
[2023-11-11 19:32] VITALS: BP 130/81; PULSE 68; RESP 16; TEMP 36.6; O2SAT 98; BMI 28.1
--- NOTE | 2023-11-11 19:50 | ED.GENADULT ---
HPI - General Adult General Chief complaint: Skin/Abscess/Foreign Body Stated complaint: possible blood clot Time Seen by Provider: 11/11/23 19:32 Source: patient Mode of arrival: ambulatory Limitations: no limitations History of Present Illness HPI narrative: 48-year-old male coming in today complaining of a rash and pain in the left buttocks. Patient states he noticed the rash about 5 days ago and recently he is having increased pain in the buttocks area. Patient does have a history of DVT and is on Eliquis. He is concerned that that is the cause of his issues today. She denies any fevers or chills. He does have increased fatigue but is able to do his activities of daily living without problems. Patient denies any cough or shortness of breath. He denies any rash on his trunk or face. The rash is painful. Patient did have chickenpox as a child. Related Data Previous Rx's ?Medication ?Instructions ?Recorded apixaban 5 mg tablet (Eliquis) 5 mg PO BID #180 tabs 07/09/23 valacyclovir 1 gram tablet 1,000 mg PO TID 7 days #21 tabs 11/11/23 Allergies Allergy/AdvReac Type Severity Reaction Status Date / Time No Known Drug Allergies Allergy Verified 10/25/22 09:05 Review of Systems Status of ROS: Reports: 10 or more systems reviewed and unremarkable except as noted in History and below [facility] Medical History Elevated erythrocyte sedimentation rate (03/2016) ?R70.0 - Elevated erythrocyte sedimentation rate (ICD-10) Rash ?R21 - Rash and other nonspecific skin eruption (ICD-10) Elevated blood pressure reading (06/2016) ?R03.0 - Elevated blood-pressure reading, without diagnosis of hypertension (ICD-10) History of blurred vision (06/2016) ?Z86.69 - Personal history of other diseases of the nervous system and sense organs (ICD-10) Social History Narrative: Lives with Radha (medical decision maker if needed), 3 children. 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 Nonsmoker, rare ETOH use. Full Code. Smoking Status: Never smoker Do you use any of these nicotine containing products: None How often do you have a drink containing alcohol: monthly or less How many standard drinks containing alcohol do you have on a typical day: 1 or 2 How often do you have six or more drinks on one occasion: Never AUDIT-C Alcohol total score: 1 Non-prescribed substance use: denies use Little interest or pleasure in doing things: not at all Feeling down, depressed, or hopeless: not at all Exam Narrative: Exam Narrative: Well-nourished well-developed patient in no acute distress. Alert and oriented. Answers questions appropriately. Mood and affect are appropriate. Thoughts are goal oriented and rational. No tangential or magical thinking noted. Patient speaks in full sentences without needing to catch his breath. HEENT: Normocephalic atraumatic. Pupils are equally round reactive to light. Extraocular muscles are intact. Conjunctivae are moist without any icterus noted. Moist mucous membranes. Cardiovascular: Heart is regular rate and rhythm. Lungs: Clear to auscultation bilaterally. Extremities: Bilateral lower extremities are without edema. Patient has a vesicular rash along the as 2 dermatome that includes the buttocks and the medial posterior thigh. The rash extends just past the posterior knee. There is no superimposed infection noted, no evidence of cellulitis. Not all the lesions are crusted over, many are. Skin: Well perfused. Const: Vital Signs, click to edit/add: Vital Signs - 24 hr 11/11/23 19:32 Temperature 97.8 F Pulse Rate [Pulse Oximeter] 68 Respiratory Rate 16 Blood Pressure [Ri ght Upper Arm] 130/81 Pulse Oximetry 98 Oxygen Delivery Me thod Room Air Course Vital Signs Vital signs: Initial Vital Signs Temperature 97.8 F 11/11/23 19:32 Temperature Source Temporal Artery Scan 11/11/23 19:32 Pulse Rate 68 11/11/23 19:32 Respiratory Rate 16 11/11/23 19:32 Blood Pressure 130/81 11/11/23 19:32 Blood Pressure Mean 97 11/11/23 19:32 Blood Pressure Position Sitting 11/11/23 19:32 Pulse Oximetry 98 11/11/23 19:32 Oxygen Delivery Method Room Air 11/11/23 19:32 Vital Signs Temperature 97.8 F 11/11/23 19:32 Pulse Rate 68 11/11/23 19:32 Respiratory Rate 16 11/11/23 19:32 Blood Pressure 130/81 11/11/23 19:32 Pulse Oximetry 98 11/11/23 19:32 Oxygen Delivery Method Room Air 11/11/23 19:32 Temperature 97.8 F 11/11/23 19:32 Pulse Rate 68 11/11/23 19:32 Respiratory Rate 16 11/11/23 19:32 Blood Pressure 130/81 11/11/23 19:32 Pulse Oximetry 98 11/11/23 19:32 Oxygen Delivery Method Room Air 11/11/23 19:32 Medical Decision Making MDM Narrative Medical decision making narrative: 48-year-old male with shingles. Very classic appearing infection. Because of the size of the dermatome and the increasing pain we will go ahead and put him on valacyclovir although he is outside the best therapeutic window. Patient does not wish to have any pain medicine at this time. Will follow-up as needed. Discharge Plan Discharge Clinical Impression: Shingles Patient Disposition: Home, Self-Care Condition: Stable Additional Instructions: You have a very classic appearing shingles infection. Start taking valacyclovir as directed. Okay to use ibuprofen as needed/as directed for discomfort. If pain becomes worse and is not controlled with ibuprofen follow-up with your primary care provider for further pain management. Keep lesions clean-shower daily. Prescriptions: New valacyclovir 1 gram tablet 1,000 mg PO TID 7 Days Qty: 21 0RF No Action Eliquis 5 mg tablet 5 mg PO BID Qty: 180 1RF Follow Up/Referrals: Ousmane Bajwa PA-C [Primary Care Provider] - Stand Alone Forms: [email or web address] Info Instructions
== END 2023-11-11 20:08 | disposition home or self-care (01) ==
LOC: ED 19:53
PROVIDERS: Emergency Provider Family Medicine; PCP Physician Assistant Medical
DX: B02.9 Zoster without complications (principal)
CPT/HCPCS: 99283

== ENCOUNTER 2024-05-16 07:19 | Emergency (ER) | payer MEDICAID, SELFPAY ==
--- OUTSIDE RECORDS SUMMARY | 2024-05-16 07:21 | XMS_ITS | Clinical Summary ---
Author Organization [facility] Address [place], [place] [address] Care Team Providers Care Polls Or Surveys Interviewer Name Role Phone Provider, Non-[facility] Primary Care Provider Un available Allergies No known active allergies Medications oxyCODONE (ROXICODONE) 5 mg immediate release tablet Take 1 Tablet (5 mg) by mouth every 6 hours if needed for Pain. 10 Tablet 3 Active ascorbic acid, vitamin C, (Vitamin C) 1,000 mg tablet Take 1 Tablet (1,000 mg) by mouth once daily. 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 1 capsule by mouth daily. 0 3 Active medication order composer Bromoline; 500 mg by mouth once daily. 0 3 Active apixaban (Eliquis) 2.5 mg tabletIndication s:Acute deep vein thrombosis (DVT) of right lower extremity, unspecified vein (HC) Take 1 Tablet (2.5 mg) by mouth two times daily. TO BE STARTED IN December 2022 180 Tablet 3 3 Active apixaban (Eliquis) 5 mg tabletIndication s:Deep vein thrombosis (DVT) of right lower extremity, unspecified chronicity, unspecified vein (HC) Take 1 Tablet (5 mg) by mouth two times daily. Continue Eliquis 5 mg twice daily for the first 6 months (until December 2022) then transition to 2.5 mg twice daily long-term. 60 Tablet 5 3 Active Social History Tobacco Use Types Packs/Day Years Used Date Smoking Tobacco: Never Smokeless Tobacco: Never Tobacco Cessation:Counseling Given: Not Answered Social Connections Answer Date Recorded Frequency of Communication with Friends and Fami ly Not on file 06/27/2022 Sex and Gender Information Value Date Recorded Sex Assigned at Not on file Legal Sex Male 3:59 PM [employer] WORK[employer] Gender Identity Not on file Sexual Orientation Not on file Obstetrics History Last Filed Vital Signs Vital Sign Reading Time Taken Comments Blood Pressure 140/96 06/27/2022 1:04 PM CDT Pulse 94 06/27/2022 1:04 PM CDT Temperature 36.9 C (98.5 F) 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 Respiratory Rate 16 06/27/2022 1:04 PM CDT Oxygen Saturation 95% 06/27/2022 1:04 PM CDT on room air Inhaled Oxygen Concentration - - Weight 97.5 kg (215 lb) 06/27/2022 1:04 PM CDT Height 177.8 cm (5' 10) 06/27/2022 1:04 PM CDT Body Mass Index 30.85 06/27/2022 1:04 PM CDT Plan of Treatment Health Maintenance Due Date Last Done Comments Tdap 1984 Depression screening for age 12+ 1985 HIV for age 15-65 1988 Hepatitis C screening for ag e 18-79 1991 Tetanus booster 1993 Colonoscopy through age 75 2018 Lipids for age 45-75 2018 Pneumococcal series for age 50+ (1 of 1 - PCV) 2023 Zoster (shingles) series for age 50+ (1 of 2) 2023 BMI (ht and wt on same day) for age 18+ 06/28/2023 06/27/2022 COVID-19 vaccine series ( season) 2023 Influenza for age 50-64 12/14/2023 Pneumococcal series for age 6-49 Aged Out No longer eligible based on patient's age to complete this topic Insurance [employer] [place] [place] [id number] Care Teams Polls Or Surveys Interviewer Relationship Specialty Start Date End Date Provider, Non-[facility] . PCP - General 03/29/16
[2024-05-16 07:25] VITALS: BP 139/89; PULSE 64; RESP 12; TEMP 36.2; O2SAT 95; BMI 28.7
--- NOTE | 2024-05-16 07:48 | CRLHL7_ITS ---
For Patients: As a result of the Century Cures Act, medical imaging exams and procedure reports are released immediately into your electronic medical record. You may view this report before your referring provider. If you have questions, please contact your health care provider. INDICATION: Leg pain. History of DVT. On anticoagulation. TECHNIQUE: Ultrasound venous duplex lower right extremity. Compression venous exam was performed using alanis-scale, color Doppler, and spectral Doppler analysis. COMPARISON: Right lower extremity venous ultrasound 07/10/2022. FINDINGS: Right common femoral artery is patent, without evidence of deep venous thrombosis. Visualized greater saphenous and deep femoral veins are patent. Mildly heterogeneous noncompressible and nonocclusive material in the mid to distal right femoral and popliteal veins is similar in appearance. Contralateral left common femoral vein is patent. IMPRESSION: Chronic appearing right lower extremity deep venous thrombosis is similar in appearance. No evidence of acute right lower extremity deep venous thrombosis. Dictated by Deshawn Morfin MD @ 05/16/2024 9:31:14 AM Dictated by: Deshawn Morfin MD @ 05/16/2024 09:31:28 (Electronically Signed)
--- NOTE | 2024-05-16 08:00 | ED_ITS ---
HPI - General Adult General Chief complaint: Extremity Pain/Injury, Lower Stated complaint: LEG CRAMP Time Seen by Provider: 05/16/24 08:00 History of Present Illness HPI narrative: Pt here for eval of R leg cramping x2 days (worse overnight), slight increase in swelling from baseline. Hx of DVT in R leg in 2022 ( was admitted and on heparin) , states pain feels similar to this. Does take Eliquis. 49-year-old man presenting to the emergency department with concern of right calf cramping and pain. With further questioning admittedly both legs have been cramping a little bit but particularly so the right. Apparently had extensive DVT in the right leg in June of 2022 was admitted heparinization and has continued on Eliquis since. Is not experiencing chest pain or shortness of breath. Spouse did gives a potassium pill and I believe some magnesium yesterday. No new trauma noted. Related Data Previous Rx's ?Medication ?Instructions ?Recorded apixaban 5 mg tablet (Eliquis) 5 mg PO BID #180 tabs 07/09/23 Allergies Allergy/AdvReac Type Severity Reaction Status Date / Time No Known Drug Allergies Allergy Verified 05/16/24 07:27 Review of Systems Status of ROS: Reports: 6 or more systems reviewed and unremarkable except as noted in History and below [facility] Medical History History of DVT (deep vein thrombosis) ?Z86.718 - Personal history of other venous thrombosis and embolism (ICD-10) Rash ?R21 - Rash and other nonspecific skin eruption (ICD-10) History of blurred vision (06/2016) ?Z86.69 - Personal history of other diseases of the nervous system and sense organs (ICD-10) Elevated erythrocyte sedimentation rate (03/2016) ?R70.0 - Elevated erythrocyte sedimentation rate (ICD-10) Elevated blood pressure reading (06/2016) ?R03.0 - Elevated blood-pressure reading, without diagnosis of hypertension (ICD-10) Social History Narrative: Lives with Radha (medical decision maker if needed), 3 children. Works in [employer], [employer] in the winter. Nonsmoker, rare ETOH use. Full Code. Smoking Status: Never smoker Do you use any of these nicotine containing products: None How often do you have a drink containing alcohol: monthly or less How many standard drinks containing alcohol do you have on a typical day: 1 or 2 How often do you have six or more drinks on one occasion: Never AUDIT-C Alcohol total score: 1 Non-prescribed substance use: denies use Exam Narrative: Exam Narrative: Pleasant. NAD. Breathing easily. Lungs are clear. Heart in regular rate and rhythm. Right lower leg appears a little larger than the left; apparently this is chronic. Is without tenderness to palpation of the left calf. Is sore to palpation of the right calf. Well-perfused peripherally. No knee effusion. No erythema about the knee. No knee tenderness. Const: Vital Signs, click to edit/add: Vital Signs - 24 hr 05/16/24 07:25 Temperature 97.1 F L Pulse Rate [Femora l] 64 Respiratory Rate 12 Blood Pressure [Ri ght Upper Arm] 139/89 Pulse Oximetry 95 Oxygen Delivery Me thod Room Air Documenting provider has reviewed patient's vital signs: yes Course Vital Signs Vital signs: Initial Vital Signs Temperature 97.1 F L 05/16/24 07:25 Temperature Source Temporal Artery Scan 05/16/24 07:25 Pulse Rate 64 05/16/24 07:25 Pulse Rhythm Regular 05/16/24 07:25 Respiratory Rate 12 05/16/24 07:25 Blood Pressure 139/89 05/16/24 07:25 Blood Pressure Mean 105 05/16/24 07:25 Blood Pressure Position Supine 05/16/24 07:25 Pulse Oximetry 95 05/16/24 07:25 Oxygen Delivery Method Room Air 05/16/24 07:25 Vital Signs Temperature 97.1 F L 05/16/24 07:25 Pulse Rate 64 05/16/24 07:25 Respiratory Rate 12 05/16/24 07:25 Blood Pressure 139/89 05/16/24 07:25 Pulse Oximetry 95 05/16/24 07:25 Oxygen Delivery Method Room Air 05/16/24 07:25 Temperature 97.1 F L 05/16/24 07:25 Pulse Rate 64 05/16/24 07:25 Respiratory Rate 12 05/16/24 07:25 Blood Pressure 139/89 05/16/24 07:25 Pulse Oximetry 95 05/16/24 07:25 Oxygen Delivery Method Room Air 05/16/24 07:25 Medical Decision Making MDM Narrative Medical decision making narrative: Can certainly verify presence or absence of DVT. May well still be present. May have propagated further. Is already anticoagulated. This could be cramps secondary to dehydration or chemistry imbalances. Will check the latter as well. Anticipating handoff at change of shift Medical Records Medical records reviewed: Yes I reviewed the patient's medical records Discharge Plan Discharge Clinical Impression: Calf pain Prescriptions: No Action Eliquis 5 mg tablet 5 mg PO BID Qty: 180 1RF Follow Up/Referrals: Ousmane Bajwa PA-C [Primary Care Provider] -
--- OUTSIDE RECORDS SUMMARY | 2024-05-16 08:13 | XMS_ITS | Clinical Summary ---
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 PCP - General 03/29/16
[2024-05-16 09:00] VITALS: BP 124/70; PULSE 67; RESP 12; O2SAT 95
[2024-05-16 09:15] LABS: Chloride* 104 mmol/L (96-114); Sodium* 139 mmol/L (135-149)
[2024-05-16 09:16] LABS: Potassium* 4.3 mmol/L (3.6-5.1)
[2024-05-16 09:18] LABS: Anion Gap 7 mEq/L (7-15); Carbon Dioxide* 28 mmol/L (20-32); Creatinine* 1.1 mg/dL (0.5-1.5); Est. Creatinine Clearance* 82.03; Estimated Glomerular Filt Rate 81 ml/min
[2024-05-16 09:19] LABS: Blood Urea Nitrogen* 27 mg/dL (7-30); Calcium* 9.1 mg/dL (8.4-10.6); Glucose* 93 mg/dL (60-115); Magnesium* 2.2 mg/dL (1.5-2.6)
[2024-05-16 09:58] VITALS: BP 139/89; PULSE 64; RESP 12; TEMP 36.2
== END 2024-05-16 09:59 | disposition home or self-care (01) ==
PROVIDERS: Emergency Provider Family Medicine; PCP Physician Assistant Medical
DX: M79.661 Pain in right lower leg (principal)
CPT/HCPCS: 36415; 80048; 83735; 93971; 99284